=== PATIENT | female | born 1935 | race Caucasian/White ===

== ENCOUNTER 2017-06-02 15:40 | Inpatient (IN) | payer MEDICARE, OTHER ==
[2017-06-02] VITALS (8 sets, daily range): BP systolic 103–169; BP diastolic 46–91
[~2017-06-02] VITALS: Ht 165.1 cm; Wt 90.7 kg
[2017-06-02] MEDS ORDERED: SODIUM CHLORIDE FLUSH 10ML SYR IVF ONE ×2 (16:00→16:30)
[2017-06-02 16:38] LABS: BASOPHILS # (AUTO) 0.04 x10^3/uL (0-0.1); BASOPHILS % (AUTO) 0 % (0-1); EOSINOPHILS # (AUTO) 0.32 x10^3/uL (0-0.4); EOSINOPHILS % (AUTO) 3 % (1-7); LYMPHOCYTES % (AUTO) 26 % (22-44); MD NO; MEAN CORPUSCULAR HEMOGLOBIN 29.3 pg (27.0-34.8); MEAN CORPUSCULAR VOLUME 88.8 fL (80-100); MEAN PLATELET VOLUME 10.8 fL (7.4-10.4); MONOCYTES # (AUTO) 0.61 x10^3/uL (0.2-0.8); MONOCYTES % (AUTO) 6 % (2-9); NEUTROPHILS # (AUTO) 7.17 x10^3/uL (1.8-6.8); NEUTROPHILS % (AUTO) 65 % (42-75); PLATELET COUNT 196 x10^3/uL (130-400); RED BLOOD COUNT 4.77 x10^6/uL (3.82-5.3); RED CELL DISTRIBUTION WIDTH 14.5 % (9.6-15.2)
[2017-06-02] MEDS ORDERED: FURO40TA6 PO (16:44)
[2017-06-02] MEDS ORDERED: POTA10TA PO (16:44)
[2017-06-02] MEDS ORDERED: WARF2TAB7 PO (16:44)
[2017-06-02] MEDS ORDERED: GLIP5TAB10 PO (16:44)
[2017-06-02] MEDS ORDERED: CHOL100011 PO (16:44)
[2017-06-02] MEDS ORDERED: ASPI-496 PO (16:44)
[2017-06-02] MEDS ORDERED: LEVO25TA4 PO (16:44)
[2017-06-02 16:47] LABS: FIO2 90 %
[2017-06-02] MEDS ORDERED: CEFTRIAXONE PMX 1GM/50ML 50 ML ONE (16:47)
[2017-06-02 16:48] LABS: ALANINE AMINOTRANSFERASE 45 U/L (12-78); ALBUMIN 3.7 g/dL (3.4-5.0); ANION GAP 4 mmol/L (5-15); CALCIUM 8.4 mg/dL (8.5-10.1); CHLORIDE 109 mmol/L (98-107); CREATININE 1.13 mg/dL (0.55-1.02)
[2017-06-02 16:53] LABS: ALKALINE PHOSPHATASE 71 U/L (45-117); BILIRUBIN,TOTAL 1.1 mg/dL (0.2-1.0); TOTAL PROTEIN 7.4 g/dL (6.4-8.2); TROPONIN I < 0.015 ng/mL (0.000-0.045)
[2017-06-02 16:58] LABS: INTERNATIONAL NORMALIZED RATIO 3.89 (0.93-1.1); PROTHROMBIN TIME 39.4 Seconds (9.6-11.5)
[2017-06-02] MEDS ORDERED: VANCOMYCIN 1,400 MG in SODIUM CHLORIDE 0.9% 250 ML IV ONE (17:00)
[2017-06-02] MEDS ORDERED: CEFTRIAXONE PMX 1GM/50ML 50 ML IVPB ONE (17:00)
[2017-06-02] MEDS ORDERED: VANCOMYCIN PER PHARMACY MC ONE (17:00)
[2017-06-02] MEDS ORDERED: POLYETHYLENE GLYCOL 17 GM PACKET PO PRN (19:00)
[2017-06-02] MEDS ORDERED: BISACODYL 10 MG SUPP PR PRN (19:00)
[2017-06-02] MEDS ORDERED: PROPOFOL 100 ML IV PRN (19:30)
[2017-06-02] MEDS ORDERED: VECURONIUM 10 MG IVPush ONE (19:30)
[2017-06-02] MEDS ORDERED: ETOMIDATE 20 MG/10 ML IVPush ONE (19:30)
[2017-06-02] MEDS ORDERED: PROPOFOL 10 MG/ML, 100ML IV ONE (20:00)
[2017-06-02] MEDS ORDERED: VECURONIUM 10 MG ONE (20:00)
[2017-06-02] MEDS ORDERED: ETOMIDATE 20 MG/10 ML ONE (20:00)
[2017-06-02] MEDS ORDERED: LIDOCAINE-MPF 1%, 2ML ENDO PRN (20:30)
[2017-06-02] MEDS ORDERED: LABETALOL 5MG/ML, 20ML IVPush PRN (20:30)
[2017-06-02] MEDS ORDERED: PHARMACY MAY ADJ FOR RENAL FX MC SCH (20:30)
[2017-06-02] MEDS ORDERED: LACTULOSE 20 GM/30 ML UDC NG PRN (20:30)
[2017-06-02] MEDS: PANTOPRAZOLE 40 MG IV IVPush SCH (21:48)
[2017-06-02] MEDS: AZITHROMYCIN 500 MG in SODIUM CHLORIDE 0.9% 250 ML IV SCH (21:48)
[2017-06-02] MEDS: PROPOFOL 100 ML IV PRN (23:25)
[2017-06-03 00:40] VITALS: BP 145/72
[2017-06-03 02:24] LABS: BASOPHILS # (AUTO) 0.04 x10^3/uL (0-0.1); BASOPHILS % (AUTO) 0 % (0-1); EOSINOPHILS # (AUTO) 0.05 x10^3/uL (0-0.4); EOSINOPHILS % (AUTO) 0 % (1-7); LYMPHOCYTES # (AUTO) 1.48 x10^3/uL (1-3.4); LYMPHOCYTES % (AUTO) 12 % (22-44); MD NO; MEAN CORPUSCULAR HEMOGLOBIN 29.4 pg (27.0-34.8); MEAN CORPUSCULAR HGB CONC 33.2 g/dL (32.4-35.8); MEAN CORPUSCULAR VOLUME 88.4 fL (80-100); MONOCYTES # (AUTO) 0.72 x10^3/uL (0.2-0.8); MONOCYTES % (AUTO) 6 % (2-9); NEUTROPHILS # (AUTO) 9.68 x10^3/uL (1.8-6.8); NEUTROPHILS % (AUTO) 81 % (42-75); PLATELET COUNT 138 x10^3/uL (130-400); RED BLOOD COUNT 3.58 x10^6/uL (3.82-5.3); RED CELL DISTRIBUTION WIDTH 14.6 % (9.6-15.2)
[2017-06-03 02:33] LABS: INTERNATIONAL NORMALIZED RATIO 1.82 (0.93-1.1); PROTHROMBIN TIME 18.7 Seconds (9.6-11.5)
[2017-06-03 02:36] LABS: ALANINE AMINOTRANSFERASE 35 U/L (12-78); ALBUMIN 3.3 g/dL (3.4-5.0); ANION GAP 6 mmol/L (5-15); CALCIUM 8.1 mg/dL (8.5-10.1); CHLORIDE 112 mmol/L (98-107); CREATININE 0.83 mg/dL (0.55-1.02)
[2017-06-03 02:47] LABS: ALKALINE PHOSPHATASE 59 U/L (45-117); TOTAL PROTEIN 6.6 g/dL (6.4-8.2)
[2017-06-03] MEDS: PROPOFOL 100 ML IV PRN (04:27)
[2017-06-03] MEDS: PANTOPRAZOLE 40 MG IV IVPush SCH ×2 (07:52→20:11)
[2017-06-03] MEDS: CEFTRIAXONE PMX 2GM/50ML 50 ML IV SCH (15:36)
[2017-06-03] MEDS: AZITHROMYCIN 500 MG in SODIUM CHLORIDE 0.9% 250 ML IV SCH (20:11)
[2017-06-04 04:30] LABS: BASOPHILS # (AUTO) 0.03 x10^3/uL (0-0.1); BASOPHILS % (AUTO) 0 % (0-1); EOSINOPHILS # (AUTO) 0.17 x10^3/uL (0-0.4); EOSINOPHILS % (AUTO) 2 % (1-7); INTERNATIONAL NORMALIZED RATIO 1.9 (0.93-1.1); LYMPHOCYTES % (AUTO) 14 % (22-44); MD NO; MEAN CORPUSCULAR HEMOGLOBIN 29.7 pg (27.0-34.8); MEAN CORPUSCULAR HGB CONC 33.5 g/dL (32.4-35.8); MEAN CORPUSCULAR VOLUME 88.5 fL (80-100); MEAN PLATELET VOLUME 10.8 fL (7.4-10.4); MONOCYTES # (AUTO) 0.42 x10^3/uL (0.2-0.8); MONOCYTES % (AUTO) 5 % (2-9); NEUTROPHILS % (AUTO) 79 % (42-75); PLATELET COUNT 124 x10^3/uL (130-400); PROTHROMBIN TIME 19.5 Seconds (9.6-11.5); RED BLOOD COUNT 3.25 x10^6/uL (3.82-5.3); RED CELL DISTRIBUTION WIDTH 14.8 % (9.6-15.2)
[2017-06-04 04:32] LABS: ANION GAP 4 mmol/L (5-15); CALCIUM 8.1 mg/dL (8.5-10.1); CHLORIDE 114 mmol/L (98-107)
[2017-06-04 04:36] LABS: ALANINE AMINOTRANSFERASE 25 U/L (12-78); ALKALINE PHOSPHATASE 48 U/L (45-117); BILIRUBIN,TOTAL 2.2 mg/dL (0.2-1.0); CREATININE 0.84 mg/dL (0.55-1.02); TOTAL PROTEIN 6.2 g/dL (6.4-8.2)
[2017-06-04] MEDS: PANTOPRAZOLE 40 MG IV IVPush SCH ×2 (07:57→19:52)
[2017-06-04] MEDS ORDERED: MIDAZOLAM 1 MG/ML, 5ML ONE (14:00)
[2017-06-04] MEDS ORDERED: VECURONIUM 10 MG ONE (14:00)
[2017-06-04] MEDS ORDERED: PROPOFOL 10 MG/ML, 100ML IV ONE (14:00)
[2017-06-04] MEDS ORDERED: PROPOFOL 10 MG/ML, 20ML ONE (14:00)
[2017-06-04] MEDS: CEFTRIAXONE PMX 2GM/50ML 50 ML IV SCH (16:29)
[2017-06-04] MEDS: AZITHROMYCIN 500 MG in SODIUM CHLORIDE 0.9% 250 ML IV SCH (19:52)
[2017-06-05 04:51] LABS: INTERNATIONAL NORMALIZED RATIO 1.78 (0.93-1.1); PROTHROMBIN TIME 18.3 Seconds (9.6-11.5)
[2017-06-05 05:06] LABS: BASOPHILS # (AUTO) 0.04 x10^3/uL (0-0.1); BASOPHILS % (AUTO) 0 % (0-1); EOSINOPHILS % (AUTO) 1 % (1-7); LYMPHOCYTES # (AUTO) 1.32 x10^3/uL (1-3.4); LYMPHOCYTES % (AUTO) 13 % (22-44); MD NO; MEAN CORPUSCULAR HEMOGLOBIN 30.7 pg (27.0-34.8); MEAN CORPUSCULAR HGB CONC 34.3 g/dL (32.4-35.8); MEAN CORPUSCULAR VOLUME 89.6 fL (80-100); MEAN PLATELET VOLUME 11.1 fL (7.4-10.4); MONOCYTES # (AUTO) 0.55 x10^3/uL (0.2-0.8); MONOCYTES % (AUTO) 6 % (2-9); NEUTROPHILS # (AUTO) 8.12 x10^3/uL (1.8-6.8); NEUTROPHILS % (AUTO) 80 % (42-75); PLATELET COUNT 107 x10^3/uL (130-400); RED BLOOD COUNT 3.29 x10^6/uL (3.82-5.3); RED CELL DISTRIBUTION WIDTH 15.1 % (9.6-15.2)
[2017-06-05] MEDS: ACETYLCYSTEINE 10%,30ML NPPB SCH ×4 (07:00→20:00)
[2017-06-05 07:03] LABS: ANION GAP 8 mmol/L (5-15); CALCIUM 8.4 mg/dL (8.5-10.1); CHLORIDE 114 mmol/L (98-107); CREATININE 0.78 mg/dL (0.55-1.02)
[2017-06-05] MEDS: PANTOPRAZOLE 40 MG IV IVPush SCH (08:14)
[2017-06-05] MEDS ORDERED: CEFTRIAXONE 2,000 MG in DEXTROSE 5% 50 ML IV SCH (10:00)
[2017-06-05] MEDS ORDERED: ALBUTEROL SULFATE 2.5 MG/3 ML ONE (10:27)
[2017-06-05] MEDS: ALBUTEROL SULFATE 2.5 MG/3 ML NPPB SCH ×3 (11:10→23:00)
[2017-06-05] MEDS: CEFTRIAXONE 2,000 MG in DEXTROSE 5% 50 ML IV SCH (11:30)
[2017-06-05] MEDS: AZITHROMYCIN 500 MG in SODIUM CHLORIDE 0.9% 250 ML IV SCH (20:38)
[2017-06-06 04:49] LABS: BASOPHILS # (AUTO) 0.06 x10^3/uL (0-0.1); BASOPHILS % (AUTO) 1 % (0-1); EOSINOPHILS # (AUTO) 0.08 x10^3/uL (0-0.4); EOSINOPHILS % (AUTO) 1 % (1-7); LYMPHOCYTES # (AUTO) 1.88 x10^3/uL (1-3.4); LYMPHOCYTES % (AUTO) 16 % (22-44); MD NO; MEAN CORPUSCULAR HEMOGLOBIN 30.2 pg (27.0-34.8); MEAN CORPUSCULAR HGB CONC 33.7 g/dL (32.4-35.8); MEAN CORPUSCULAR VOLUME 89.5 fL (80-100); MEAN PLATELET VOLUME 10.8 fL (7.4-10.4); MONOCYTES # (AUTO) 0.69 x10^3/uL (0.2-0.8); MONOCYTES % (AUTO) 6 % (2-9); NEUTROPHILS # (AUTO) 9.23 x10^3/uL (1.8-6.8); NEUTROPHILS % (AUTO) 77 % (42-75); PLATELET COUNT 141 x10^3/uL (130-400); RED BLOOD COUNT 3.31 x10^6/uL (3.82-5.3); RED CELL DISTRIBUTION WIDTH 15.1 % (9.6-15.2)
[2017-06-06] MEDS: ALBUTEROL SULFATE 2.5 MG/3 ML NPPB SCH ×5 (07:10→23:29)
[2017-06-06] MEDS: ACETYLCYSTEINE 10%,30ML NPPB SCH ×3 (07:10→14:19)
[2017-06-06] MEDS ORDERED: FUROSEMIDE 20 MG/2 ML IV ONE (08:00)
[2017-06-06] MEDS ORDERED: LIDOCAINE-MPF 1%, 2ML ONE (08:54)
[2017-06-06] MEDS ORDERED: HEPARIN 5,000 UNITS/ML, 1ML IV PRN (09:00)
[2017-06-06] MEDS: CEFTRIAXONE 2,000 MG in DEXTROSE 5% 50 ML IV SCH (09:56)
[2017-06-06] MEDS ORDERED: HEPARIN 5,000 UNITS/ML, 1ML IV ONE (10:30)
[2017-06-06] MEDS ORDERED: HEPARIN 25,000 UNITS/500ML PMX 500 ML IV PRN (10:30)
[2017-06-06] MEDS: GUAIFENESIN ER 600 MG TABLET PO SCH ×2 (11:13→20:48)
[2017-06-06 13:20] LABS: RAPID INFLUENZA A Negative (Negative); RAPID INFLUENZA B Negative (Negative)
[2017-06-06] MEDS ORDERED: AMIODARONE 150 MG in DEXTROSE 5% 100 ML IV ONE (17:30)
[2017-06-06] MEDS ORDERED: AMIODARONE 900 MG in DEXTROSE 5% 482 ML IV PRN (17:30)
[2017-06-06] MEDS ORDERED: FILTER 0.22 MICRON IV PRN (17:30)
[2017-06-06] MEDS: AMIODARONE 450 MG in DEXTROSE 5% 241 ML IV PRN (17:40)
[2017-06-06] MEDS: ACETAMINOPHEN 650 MG/20.3 ML UDC PO PRN (20:57)
[2017-06-06] MEDS ORDERED: PROPOFOL 100 ML IV PRN (21:00)
[2017-06-06] MEDS: METRONIDAZOLE PMX 500MG/100ML 100 ML IV SCH (21:47)
[2017-06-06] MEDS: PROPOFOL 100 ML IV PRN (22:08)
[2017-06-07] MEDS: ALBUTEROL SULFATE 2.5 MG/3 ML NPPB SCH ×6 (03:03→22:34)
[2017-06-07 04:23] LABS: BASOPHILS # (AUTO) 0.03 x10^3/uL (0-0.1); BASOPHILS % (AUTO) 0 % (0-1); EOSINOPHILS % (AUTO) 1 % (1-7); LYMPHOCYTES # (AUTO) 1.29 x10^3/uL (1-3.4); LYMPHOCYTES % (AUTO) 10 % (22-44); MD NO; MEAN CORPUSCULAR HEMOGLOBIN 30.6 pg (27.0-34.8); MEAN CORPUSCULAR HGB CONC 34.2 g/dL (32.4-35.8); MEAN CORPUSCULAR VOLUME 89.7 fL (80-100); MEAN PLATELET VOLUME 10.8 fL (7.4-10.4); MONOCYTES # (AUTO) 0.66 x10^3/uL (0.2-0.8); MONOCYTES % (AUTO) 5 % (2-9); NEUTROPHILS # (AUTO) 10.29 x10^3/uL (1.8-6.8); NEUTROPHILS % (AUTO) 83 % (42-75); PLATELET COUNT 144 x10^3/uL (130-400); RED BLOOD COUNT 3.25 x10^6/uL (3.82-5.3); RED CELL DISTRIBUTION WIDTH 15.1 % (9.6-15.2)
[2017-06-07 04:35] LABS: ANION GAP 8 mmol/L (5-15); CHLORIDE 105 mmol/L (98-107)
[2017-06-07 04:36] LABS: CREATININE 0.75 mg/dL (0.55-1.02)
[2017-06-07] MEDS: ACETAMINOPHEN 650 MG/20.3 ML UDC PO PRN ×2 (05:12→18:10)
[2017-06-07] MEDS: METRONIDAZOLE PMX 500MG/100ML 100 ML IV SCH ×3 (05:12→21:49)
[2017-06-07] MEDS: PROPOFOL 100 ML IV PRN (05:12)
[2017-06-07] MEDS: AMIODARONE 450 MG in DEXTROSE 5% 241 ML IV PRN (05:50)
[2017-06-07] MEDS: GUAIFENESIN ER 600 MG TABLET PO SCH ×2 (09:00→21:00)
[2017-06-07] MEDS: POTASSIUM CHLORIDE 20 MEQ PACKET PO SCH ×2 (09:45→21:50)
[2017-06-07] MEDS: FAMOTIDINE 20 MG/2 ML IVPush SCH ×2 (09:45→21:50)
[2017-06-07] MEDS: CHOLESTYRAMINE LIGHT 4GM PACKET PO SCH ×2 (09:45→21:50)
[2017-06-07] MEDS: CEFTRIAXONE 2,000 MG in DEXTROSE 5% 50 ML IV SCH (09:46)
[2017-06-07] MEDS ORDERED: METOPROLOL 1 MG/ML, 5ML IVPush ONE (19:00)
[2017-06-07] MEDS ORDERED: AMIODARONE 150 MG in DEXTROSE 5% 100 ML IV ONE (19:00)
[2017-06-07 20:09] LABS: TROPONIN I < 0.015 ng/mL (0.000-0.045)
[2017-06-08] MEDS: ACETAMINOPHEN 650 MG/20.3 ML UDC PO PRN ×6 (01:13→22:57)
[2017-06-08] MEDS: ALBUTEROL SULFATE 2.5 MG/3 ML NPPB SCH ×6 (02:55→23:00)
[2017-06-08] MEDS: METRONIDAZOLE PMX 500MG/100ML 100 ML IV SCH ×3 (04:49→20:36)
[2017-06-08 05:01] LABS: MEAN CORPUSCULAR HEMOGLOBIN 30.1 pg (27.0-34.8); MEAN CORPUSCULAR HGB CONC 33.6 g/dL (32.4-35.8); MEAN CORPUSCULAR VOLUME 89.7 fL (80-100); MEAN PLATELET VOLUME 10.9 fL (7.4-10.4); PLATELET COUNT 159 x10^3/uL (130-400); RED BLOOD COUNT 3.21 x10^6/uL (3.82-5.3); RED CELL DISTRIBUTION WIDTH 15.3 % (9.6-15.2)
[2017-06-08 05:04] LABS: ANION GAP 7 mmol/L (5-15); CALCIUM 8.3 mg/dL (8.5-10.1); CHLORIDE 107 mmol/L (98-107)
[2017-06-08 05:06] LABS: CREATININE 0.89 mg/dL (0.55-1.02)
[2017-06-08 05:55] LABS: BASOPHILS % (AUTO) 0 % (0-1); EOSINOPHILS # (AUTO) 0.09 x10^3/uL (0-0.4); EOSINOPHILS % (AUTO) 1 % (1-7); LYMPHOCYTES # (AUTO) 0.67 x10^3/uL (1-3.4); LYMPHOCYTES % (AUTO) 7 % (22-44); MD SCAN; MONOCYTES # (AUTO) 0.07 x10^3/uL (0.2-0.8); MONOCYTES % (AUTO) 1 % (2-9); NEUTROPHILS # (AUTO) 8.59 x10^3/uL (1.8-6.8); NEUTROPHILS % (AUTO) 91 % (42-75)
[2017-06-08] MEDS: AMIODARONE 450 MG in DEXTROSE 5% 241 ML IV PRN (05:56)
[2017-06-08] MEDS: GUAIFENESIN ER 600 MG TABLET PO SCH (08:15)
[2017-06-08] MEDS: FAMOTIDINE 20 MG/2 ML IVPush SCH ×2 (08:15→20:35)
[2017-06-08] MEDS: CHOLESTYRAMINE LIGHT 4GM PACKET PO SCH ×2 (08:15→20:36)
[2017-06-08] MEDS: CEFTRIAXONE 2,000 MG in DEXTROSE 5% 50 ML IV SCH (10:23)
[2017-06-08] MEDS ORDERED: IBUPROFEN 600 MG TABLET PO PRN (23:30)
[2017-06-09] MEDS: AMIODARONE 450 MG in DEXTROSE 5% 241 ML IV PRN (02:23)
[2017-06-09] MEDS: ALBUTEROL SULFATE 2.5 MG/3 ML NPPB SCH ×6 (02:54→23:21)
[2017-06-09 04:45] LABS: ANION GAP 4 mmol/L (5-15); CALCIUM 7.8 mg/dL (8.5-10.1); CHLORIDE 107 mmol/L (98-107)
[2017-06-09 04:47] LABS: CREATININE 0.85 mg/dL (0.55-1.02); TRIGLYCERIDES 57 mg/dL (50-200)
[2017-06-09 05:04] LABS: BASOPHILS # (AUTO) 0.02 x10^3/uL (0-0.1); BASOPHILS % (AUTO) 0 % (0-1); EOSINOPHILS % (AUTO) 1 % (1-7); LYMPHOCYTES # (AUTO) 0.73 x10^3/uL (1-3.4); LYMPHOCYTES % (AUTO) 10 % (22-44); MD SCAN; MEAN CORPUSCULAR HEMOGLOBIN 30.1 pg (27.0-34.8); MEAN CORPUSCULAR HGB CONC 33.6 g/dL (32.4-35.8); MEAN CORPUSCULAR VOLUME 89.5 fL (80-100); MEAN PLATELET VOLUME 10.8 fL (7.4-10.4); MONOCYTES # (AUTO) 0.22 x10^3/uL (0.2-0.8); MONOCYTES % (AUTO) 3 % (2-9); NEUTROPHILS % (AUTO) 85 % (42-75); PLATELET COUNT 137 x10^3/uL (130-400); RED BLOOD COUNT 3.03 x10^6/uL (3.82-5.3); RED CELL DISTRIBUTION WIDTH 15.6 % (9.6-15.2)
[2017-06-09] MEDS: METRONIDAZOLE PMX 500MG/100ML 100 ML IV SCH (05:44)
[2017-06-09] MEDS: FAMOTIDINE 20 MG/2 ML IVPush SCH ×2 (08:42→21:01)
[2017-06-09] MEDS: LACTOBACILLUS CHEW TABLET NG SCH ×3 (08:42→21:01)
[2017-06-09] MEDS ORDERED: DIGOXIN 0.25 MG/ML, 2ML IVPush ONE (09:00)
[2017-06-09] MEDS: CLINDAMYCIN PMX 600MG/50ML 50 ML IV SCH ×2 (09:26→17:15)
[2017-06-09 10:36] LABS: MICROSCOPIC INDICATED
[2017-06-09] MEDS ORDERED: LIDOCAINE-MPF 1%, 2ML ONE (11:33)
[2017-06-09] MEDS ORDERED: HEPARIN wt. based STROKE protocol MC PRN (13:30)
[2017-06-09] MEDS ORDERED: DO NOT GIVE XX PRN (13:30)
[2017-06-09] MEDS: HEPARIN 25,000 UNITS/500ML PMX 500 ML IV PRN (13:52)
[2017-06-09] MEDS: ACETAMINOPHEN 650 MG/20.3 ML UDC PO PRN ×2 (15:43→22:19)
[2017-06-09] MEDS: INSULIN LISPRO 100 UNITS/ML, PEN SQ-INSULIN SCH ×2 (15:43→21:04)
[2017-06-09] MEDS ORDERED: RACEPINEPHRINE INH 2.25%, 0.5ML ONE (21:44)
[2017-06-10] MEDS: CLINDAMYCIN PMX 600MG/50ML 50 ML IV SCH ×3 (00:20→18:23)
[2017-06-10] MEDS: ALBUTEROL SULFATE 2.5 MG/3 ML NPPB SCH ×6 (03:00→23:18)
[2017-06-10 04:39] LABS: ANION GAP 8 mmol/L (5-15); CHLORIDE 105 mmol/L (98-107)
[2017-06-10 04:40] LABS: CREATININE 0.74 mg/dL (0.55-1.02)
[2017-06-10 05:15] LABS: BASOPHILS # (AUTO) 0.01 x10^3/uL (0-0.1); BASOPHILS % (AUTO) 0 % (0-1); EOSINOPHILS # (AUTO) 0.37 x10^3/uL (0-0.4); EOSINOPHILS % (AUTO) 4 % (1-7); LYMPHOCYTES # (AUTO) 1.06 x10^3/uL (1-3.4); LYMPHOCYTES % (AUTO) 11 % (22-44); MD SCAN; MEAN CORPUSCULAR HEMOGLOBIN 29.2 pg (27.0-34.8); MEAN CORPUSCULAR HGB CONC 33.2 g/dL (32.4-35.8); MEAN CORPUSCULAR VOLUME 87.9 fL (80-100); MONOCYTES # (AUTO) 0.04 x10^3/uL (0.2-0.8); MONOCYTES % (AUTO) 1 % (2-9); NEUTROPHILS % (AUTO) 84 % (42-75); PLATELET COUNT 175 x10^3/uL (130-400); RED BLOOD COUNT 3.01 x10^6/uL (3.82-5.3); RED CELL DISTRIBUTION WIDTH 15.1 % (9.6-15.2)
[2017-06-10] MEDS: ACETAMINOPHEN 650 MG/20.3 ML UDC PO PRN ×3 (05:19→20:42)
[2017-06-10] MEDS: INSULIN LISPRO 100 UNITS/ML, PEN SQ-INSULIN SCH ×4 (08:05→20:43)
[2017-06-10] MEDS: FAMOTIDINE 20 MG/2 ML IVPush SCH ×2 (10:29→20:42)
[2017-06-10] MEDS: AMIODARONE 200 MG TABLET PO SCH ×2 (10:30→22:37)
[2017-06-10] MEDS: LACTOBACILLUS CHEW TABLET NG SCH ×3 (10:30→20:42)
[2017-06-10] MEDS: HEPARIN 25,000 UNITS/500ML PMX 500 ML IV PRN (14:03)
[2017-06-10] MEDS ORDERED: OMNIPAQUE 350 MG/ML, 100ML BOTTLE ONE (15:27)
[2017-06-11] MEDS: CLINDAMYCIN PMX 600MG/50ML 50 ML IV SCH ×3 (00:47→17:32)
[2017-06-11] MEDS: ALBUTEROL SULFATE 2.5 MG/3 ML NPPB SCH ×6 (03:09→22:51)
[2017-06-11 03:23] LABS: ANION GAP 7 mmol/L (5-15); CALCIUM 7.7 mg/dL (8.5-10.1); CHLORIDE 103 mmol/L (98-107)
[2017-06-11 03:24] LABS: CREATININE 0.76 mg/dL (0.55-1.02)
[2017-06-11 03:28] LABS: MD YES; MEAN CORPUSCULAR HEMOGLOBIN 29.6 pg (27.0-34.8); MEAN CORPUSCULAR HGB CONC 33.4 g/dL (32.4-35.8); MEAN CORPUSCULAR VOLUME 88.5 fL (80-100); MEAN PLATELET VOLUME 10.9 fL (7.4-10.4); PLATELET COUNT 175 x10^3/uL (130-400); RED BLOOD COUNT 3.02 x10^6/uL (3.82-5.3); RED CELL DISTRIBUTION WIDTH 15.9 % (9.6-15.2)
[2017-06-11 03:32] LABS: ANISOCYTOSIS 1+; BAND#(MANUAL) 0.28 x10^3/uL; BANDS%(MANUAL) 3 % (0-7); EOS#(MANUAL) 0.28 x10^3/uL (0.0-0.4); EOS% (MANUAL) 3 % (1-7); LYMPH#(MANUAL) 2.21 x10^3/uL (1-3.4); LYMPHS% (MANUAL) 24 % (22-44); METAMYELOCYTES# (MANUAL) 0.09 x10^3/uL (0-0); METAMYELOCYTES% (MANUAL) 1 % (0-1); MONOS#(MANUAL) 0.09 x10^3/uL (0.3-2.7); MONOS% (MANUAL) 1 % (2-9); MYELOCYTES# (MANUAL) 0.09 x10^3/uL (0-0); MYELOCYTES% (MANUAL) 1 % (0-0); NRBC % (MANUAL) 2 % (0-1); OVALOCYTES 1+; POLYCHROMASIA 1+; SEG#(MANUAL) 6.16 x10^3/uL (1.8-6.8); SEGS% (MANUAL) 67 % (42-75)
[2017-06-11 03:33] LABS: <PLATELET ESTIMATE> ADEQUATE; LARGE PLATELETS 1+
[2017-06-11 03:34] LABS: TOXIC GRAN 1+
[2017-06-11 03:40] LABS: SCHISTOCYTES 1+
[2017-06-11] MEDS: ACETAMINOPHEN 650 MG/20.3 ML UDC PO PRN ×3 (03:54→20:41)
[2017-06-11] MEDS: INSULIN LISPRO 100 UNITS/ML, PEN SQ-INSULIN SCH ×4 (08:22→21:00)
[2017-06-11] MEDS: AMIODARONE 200 MG TABLET PO SCH (08:49)
[2017-06-11] MEDS: LACTOBACILLUS CHEW TABLET NG SCH ×3 (08:49→21:16)
[2017-06-11] MEDS: FAMOTIDINE 20 MG/2 ML IVPush SCH ×2 (08:49→21:16)
[2017-06-11] MEDS ORDERED: FENTANYL PF 100 MCG/2ML ONE (12:28)
[2017-06-11] MEDS: PROPOFOL 100 ML IV PRN (13:49)
[2017-06-11] MEDS ORDERED: MIDAZOLAM 1 MG/ML, 2ML ONE (13:54)
[2017-06-11] MEDS ORDERED: GOLYTELY 4,000ML ORAL.SOL NG ONE (18:00)
[2017-06-11] MEDS ORDERED: FENTANYL PF 100 MCG/2ML IVPush ONE (19:00)
[2017-06-11] MEDS: HEPARIN 25,000 UNITS/500ML PMX 500 ML IV PRN (20:09)
[2017-06-12] MEDS: AMIODARONE 200 MG TABLET PO SCH ×3 (00:09→22:38)
[2017-06-12] MEDS: CLINDAMYCIN PMX 600MG/50ML 50 ML IV SCH ×3 (01:06→16:58)
[2017-06-12] MEDS: INSULIN LISPRO 100 UNITS/ML, PEN SQ-INSULIN SCH ×4 (03:00→21:00)
[2017-06-12] MEDS: ALBUTEROL SULFATE 2.5 MG/3 ML NPPB SCH ×6 (03:00→22:40)
[2017-06-12 04:39] LABS: ANION GAP 8 mmol/L (5-15); CALCIUM 7.6 mg/dL (8.5-10.1); CHLORIDE 101 mmol/L (98-107)
[2017-06-12 04:42] LABS: CREATININE 0.79 mg/dL (0.55-1.02); TRIGLYCERIDES 103 mg/dL (50-200)
[2017-06-12] MEDS ORDERED: ACETAMINOPHEN 325 MG TABLET ONE (04:43)
[2017-06-12 05:39] LABS: MEAN CORPUSCULAR HEMOGLOBIN 28.9 pg (27.0-34.8); MEAN CORPUSCULAR VOLUME 87.4 fL (80-100); MEAN PLATELET VOLUME 10.4 fL (7.4-10.4); PLATELET COUNT 200 x10^3/uL (130-400); RED BLOOD COUNT 2.97 x10^6/uL (3.82-5.3); RED CELL DISTRIBUTION WIDTH 15.8 % (9.6-15.2)
[2017-06-12 05:43] LABS: MD YES
[2017-06-12 05:44] LABS: BAND#(MANUAL) 0.28 x10^3/uL; BANDS%(MANUAL) 3 % (0-7); EOS#(MANUAL) 0.09 x10^3/uL (0.0-0.4); EOS% (MANUAL) 1 % (1-7); LYMPH#(MANUAL) 1.22 x10^3/uL (1-3.4); LYMPHS% (MANUAL) 13 % (22-44); MONOS#(MANUAL) 0.38 x10^3/uL (0.3-2.7); MONOS% (MANUAL) 4 % (2-9); NRBC % (MANUAL) 1 % (0-1); SEG#(MANUAL) 7.43 x10^3/uL (1.8-6.8); SEGS% (MANUAL) 79 % (42-75)
[2017-06-12 05:45] LABS: ANISOCYTOSIS 1+; OVALOCYTES 1+; POLYCHROMASIA 1+
[2017-06-12 05:46] LABS: TOXIC GRAN 1+
[2017-06-12 05:47] LABS: <PLATELET ESTIMATE> ADEQUATE; LARGE PLATELETS 1+
[2017-06-12] MEDS ORDERED: FENTANYL PF 100 MCG/2ML ONE (07:41)
[2017-06-12] MEDS ORDERED: MIDAZOLAM 1 MG/ML, 5ML ONE (07:41)
[2017-06-12] MEDS: FAMOTIDINE 20 MG/2 ML IVPush SCH ×2 (09:03→21:00)
[2017-06-12] MEDS: LACTOBACILLUS CHEW TABLET NG SCH ×3 (09:04→21:20)
[2017-06-12] MEDS ORDERED: FUROSEMIDE 20 MG/2 ML IV ONE (10:00)
[2017-06-12] MEDS: ACETAMINOPHEN 650 MG/20.3 ML UDC PO PRN ×2 (14:43→21:20)
[2017-06-12] MEDS: RANITIDINE 25 MG/ML, 2ML IVPush SCH (21:45)
[2017-06-12] MEDS: HEPARIN 25,000 UNITS/500ML PMX 500 ML IV PRN (23:26)
[2017-06-13] MEDS: CLINDAMYCIN PMX 600MG/50ML 50 ML IV SCH ×3 (01:23→16:47)
[2017-06-13 02:35] LABS: ANION GAP 8 mmol/L (5-15); CALCIUM 7.4 mg/dL (8.5-10.1); CHLORIDE 100 mmol/L (98-107); CREATININE 0.83 mg/dL (0.55-1.02)
[2017-06-13] MEDS: ALBUTEROL SULFATE 2.5 MG/3 ML NPPB SCH ×6 (02:39→22:27)
[2017-06-13] MEDS: RANITIDINE 25 MG/ML, 2ML IVPush SCH (03:30)
[2017-06-13] MEDS: INSULIN LISPRO 100 UNITS/ML, PEN SQ-INSULIN SCH ×4 (03:35→21:12)
[2017-06-13] MEDS: ACETAMINOPHEN 650 MG/20.3 ML UDC PO PRN ×3 (04:14→19:40)
[2017-06-13 04:45] LABS: BASOPHILS # (AUTO) 0.04 x10^3/uL (0-0.1); BASOPHILS % (AUTO) 1 % (0-1); EOSINOPHILS # (AUTO) 0.19 x10^3/uL (0-0.4); EOSINOPHILS % (AUTO) 2 % (1-7); LYMPHOCYTES # (AUTO) 1.26 x10^3/uL (1-3.4); LYMPHOCYTES % (AUTO) 15 % (22-44); MD SCAN; MEAN CORPUSCULAR HEMOGLOBIN 28.5 pg (27.0-34.8); MEAN CORPUSCULAR HGB CONC 32.4 g/dL (32.4-35.8); MEAN CORPUSCULAR VOLUME 87.8 fL (80-100); MEAN PLATELET VOLUME 10.4 fL (7.4-10.4); MONOCYTES # (AUTO) 0.24 x10^3/uL (0.2-0.8); MONOCYTES % (AUTO) 3 % (2-9); NEUTROPHILS # (AUTO) 6.83 x10^3/uL (1.8-6.8); NEUTROPHILS % (AUTO) 80 % (42-75); PLATELET COUNT 169 x10^3/uL (130-400); RED CELL DISTRIBUTION WIDTH 15.9 % (9.6-15.2)
[2017-06-13] MEDS: AMIODARONE 200 MG TABLET PO SCH ×2 (09:15→21:12)
[2017-06-13] MEDS: RANITIDINE 50 MG in SODIUM CHLORIDE 0.9% 100 ML IV SCH ×3 (09:16→21:11)
[2017-06-13] MEDS: LACTOBACILLUS CHEW TABLET NG SCH ×3 (09:16→21:11)
[2017-06-13] MEDS: FUROSEMIDE 20 MG/2 ML IV SCH (09:16)
[2017-06-13] MEDS ORDERED: LIDOCAINE-MPF 1%, 2ML ONE (11:53)
[2017-06-13] MEDS ORDERED: LIDOCAINE 1%, 2ML INFIL ONE (12:30)
[2017-06-13] MEDS: HEPARIN 25,000 UNITS/500ML PMX 500 ML IV PRN (15:25)
[2017-06-14] MEDS: CLINDAMYCIN PMX 600MG/50ML 50 ML IV SCH ×3 (00:42→16:43)
[2017-06-14] MEDS: LIDOCAINE 1%, 2ML ENDO PRN ×2 (02:18)
[2017-06-14] MEDS: ALBUTEROL SULFATE 2.5 MG/3 ML NPPB SCH ×6 (02:18→22:50)
[2017-06-14] MEDS ORDERED: LIDOCAINE-MPF 1%, 2ML ENDO ONE (02:30)
[2017-06-14] MEDS: RANITIDINE 50 MG in SODIUM CHLORIDE 0.9% 100 ML IV SCH ×4 (03:14→20:56)
[2017-06-14] MEDS: INSULIN LISPRO 100 UNITS/ML, PEN SQ-INSULIN SCH ×4 (03:15→20:57)
[2017-06-14] MEDS: ACETAMINOPHEN 650 MG/20.3 ML UDC PO PRN (04:14)
[2017-06-14] MEDS ORDERED: LIDOCAINE 1%, 2ML ENDO PRN (05:00)
[2017-06-14] MEDS: HEPARIN 25,000 UNITS/500ML PMX 500 ML IV PRN ×2 (05:09→20:40)
[2017-06-14 05:15] LABS: CHLORIDE 97 mmol/L (98-107)
[2017-06-14 05:22] LABS: ANION GAP 10 mmol/L (5-15); CALCIUM 7.5 mg/dL (8.5-10.1); CREATININE 0.77 mg/dL (0.55-1.02)
[2017-06-14 05:43] LABS: MEAN CORPUSCULAR HEMOGLOBIN 28.8 pg (27.0-34.8); MEAN CORPUSCULAR HGB CONC 33.1 g/dL (32.4-35.8); MEAN CORPUSCULAR VOLUME 87.2 fL (80-100); MEAN PLATELET VOLUME 10.8 fL (7.4-10.4); PLATELET COUNT 260 x10^3/uL (130-400); RED CELL DISTRIBUTION WIDTH 15.9 % (9.6-15.2)
[2017-06-14 05:44] LABS: MD YES
[2017-06-14 05:46] LABS: BANDS%(MANUAL) 1 % (0-7); EOS% (MANUAL) 3 % (1-7); LYMPH#(MANUAL) 1.19 x10^3/uL (1-3.4); LYMPHS% (MANUAL) 12 % (22-44); MONOS% (MANUAL) 3 % (2-9); NRBC % (MANUAL) 6 % (0-1); SEG#(MANUAL) 8.02 x10^3/uL (1.8-6.8); SEGS% (MANUAL) 81 % (42-75)
[2017-06-14 05:47] LABS: ANISOCYTOSIS 1+; OVALOCYTES 1+; POLYCHROMASIA 1+
[2017-06-14 05:48] LABS: <PLATELET ESTIMATE> ADEQUATE; GIANT PLATELETS 1+; LARGE PLATELETS 1+; TOXIC GRAN 1+
[2017-06-14] MEDS: INSULIN GLARGINE 100 UNITS/ML, PEN SQ-INSULIN SCH ×2 (07:56→20:57)
[2017-06-14] MEDS: FUROSEMIDE 20 MG/2 ML IV SCH (07:56)
[2017-06-14] MEDS: LACTOBACILLUS CHEW TABLET NG SCH ×3 (07:56→20:56)
[2017-06-14] MEDS: AMIODARONE 200 MG TABLET PO SCH ×2 (10:50→20:56)
[2017-06-15] MEDS: CLINDAMYCIN PMX 600MG/50ML 50 ML IV SCH (00:46)
[2017-06-15] MEDS: ALBUTEROL SULFATE 2.5 MG/3 ML NPPB SCH ×6 (02:50→22:20)
[2017-06-15] MEDS: RANITIDINE 50 MG in SODIUM CHLORIDE 0.9% 100 ML IV SCH ×4 (03:10→21:00)
[2017-06-15] MEDS: INSULIN LISPRO 100 UNITS/ML, PEN SQ-INSULIN SCH ×4 (03:10→21:01)
[2017-06-15 04:33] LABS: ANION GAP 8 mmol/L (5-15); CALCIUM 7.4 mg/dL (8.5-10.1); CHLORIDE 98 mmol/L (98-107); CREATININE 0.65 mg/dL (0.55-1.02); TRIGLYCERIDES 90 mg/dL (50-200)
[2017-06-15 06:05] LABS: MEAN CORPUSCULAR HEMOGLOBIN 28.8 pg (27.0-34.8); MEAN CORPUSCULAR HGB CONC 32.8 g/dL (32.4-35.8); MEAN CORPUSCULAR VOLUME 87.6 fL (80-100); MEAN PLATELET VOLUME 10.7 fL (7.4-10.4); PLATELET COUNT 311 x10^3/uL (130-400); RED BLOOD COUNT 2.54 x10^6/uL (3.82-5.3); RED CELL DISTRIBUTION WIDTH 16.2 % (9.6-15.2)
[2017-06-15 06:25] LABS: BASOPHILS # (AUTO) 0.02 x10^3/uL (0-0.1); BASOPHILS % (AUTO) 0 % (0-1); EOSINOPHILS # (AUTO) 0.21 x10^3/uL (0-0.4); EOSINOPHILS % (AUTO) 2 % (1-7); LYMPHOCYTES # (AUTO) 1.82 x10^3/uL (1-3.4); LYMPHOCYTES % (AUTO) 14 % (22-44); MD SCAN; MONOCYTES # (AUTO) 0.62 x10^3/uL (0.2-0.8); MONOCYTES % (AUTO) 5 % (2-9); NEUTROPHILS # (AUTO) 10.69 x10^3/uL (1.8-6.8); NEUTROPHILS % (AUTO) 80 % (42-75)
[2017-06-15] MEDS ORDERED: PHARMACOKINETIC MONITORING MC PRN (07:30)
[2017-06-15] MEDS ORDERED: PHARMACOKINETIC CONSULTATION MC ONE (07:30)
[2017-06-15] MEDS ORDERED: VANCOMYCIN PER PHARMACY MC PRN (07:30)
[2017-06-15] MEDS: MEROPENEM 1 GM in SODIUM CHLORIDE 0.9% 100 ML IV SCH ×3 (07:58→23:22)
[2017-06-15] MEDS: VANCOMYCIN 1,800 MG in SODIUM CHLORIDE 0.9% 250 ML IV SCH (08:34)
[2017-06-15 08:35] LABS: CLOSTRIDIUM DIFFICILE ANTIGEN NEGATIVE; CLOSTRIDIUM DIFFICILE TOXIN NEGATIVE (Negative)
[2017-06-15] MEDS: FUROSEMIDE 20 MG/2 ML IV SCH ×2 (08:47→20:59)
[2017-06-15] MEDS: AMIODARONE 200 MG TABLET PO SCH (08:48)
[2017-06-15] MEDS: LACTOBACILLUS CHEW TABLET NG SCH ×3 (08:48→21:00)
[2017-06-15] MEDS: INSULIN GLARGINE 100 UNITS/ML, PEN SQ-INSULIN SCH ×2 (08:49→21:01)
[2017-06-15 09:55] LABS: MICROSCOPIC INDICATED
[2017-06-15 10:07] LABS: CULTURE INDICATED? NO
[2017-06-15] MEDS: HEPARIN 25,000 UNITS/500ML PMX 500 ML IV PRN (12:25)
[2017-06-16] MEDS: RANITIDINE 50 MG in SODIUM CHLORIDE 0.9% 100 ML IV SCH (03:00)
[2017-06-16] MEDS: INSULIN LISPRO 100 UNITS/ML, PEN SQ-INSULIN SCH ×4 (03:00→21:25)
[2017-06-16] MEDS: HEPARIN 25,000 UNITS/500ML PMX 500 ML IV PRN (03:05)
[2017-06-16] MEDS: ALBUTEROL SULFATE 2.5 MG/3 ML NPPB SCH ×5 (03:09→22:40)
[2017-06-16 04:41] LABS: MEAN CORPUSCULAR HEMOGLOBIN 27.7 pg (27.0-34.8); MEAN CORPUSCULAR HGB CONC 31.9 g/dL (32.4-35.8); MEAN CORPUSCULAR VOLUME 86.8 fL (80-100); MEAN PLATELET VOLUME 10.4 fL (7.4-10.4); PLATELET COUNT 342 x10^3/uL (130-400); RED BLOOD COUNT 2.57 x10^6/uL (3.82-5.3)
[2017-06-16 04:52] LABS: ANION GAP 6 mmol/L (5-15); CALCIUM 7.4 mg/dL (8.5-10.1); CHLORIDE 96 mmol/L (98-107)
[2017-06-16 04:54] LABS: CREATININE 0.62 mg/dL (0.55-1.02)
[2017-06-16 05:34] LABS: MD YES
[2017-06-16 05:36] LABS: ANISOCYTOSIS 1+; BAND#(MANUAL) 0.75 x10^3/uL; BANDS%(MANUAL) 4 % (0-7); EOS#(MANUAL) 0.38 x10^3/uL (0.0-0.4); EOS% (MANUAL) 2 % (1-7); LYMPH#(MANUAL) 2.44 x10^3/uL (1-3.4); LYMPHS% (MANUAL) 13 % (22-44); MONOS#(MANUAL) 0.75 x10^3/uL (0.3-2.7); MONOS% (MANUAL) 4 % (2-9); MYELOCYTES# (MANUAL) 0.19 x10^3/uL (0-0); MYELOCYTES% (MANUAL) 1 % (0-0); SEG#(MANUAL) 14.29 x10^3/uL (1.8-6.8); SEGS% (MANUAL) 76 % (42-75)
[2017-06-16 05:37] LABS: NRBC % (MANUAL) 1 % (0-1); OVALOCYTES 1+; POLYCHROMASIA 1+
[2017-06-16 05:38] LABS: <PLATELET ESTIMATE> ADEQUATE
[2017-06-16 05:41] LABS: GIANT PLATELETS 1+; LARGE PLATELETS 1+; SPHEROCYTES 1+; TOXIC GRAN 1+
[2017-06-16] MEDS: MEROPENEM 1 GM in SODIUM CHLORIDE 0.9% 100 ML IV SCH ×3 (08:00→23:48)
[2017-06-16] MEDS: POTASSIUM CHLORIDE 10% ORAL 20 MEQ/15 ML ORAL.SOL NG SCH ×2 (09:00→21:14)
[2017-06-16] MEDS ORDERED: FUROSEMIDE 100 MG in SODIUM CHLORIDE 0.9% 90 ML IV SCH (09:00)
[2017-06-16] MEDS: LACTOBACILLUS CHEW TABLET NG SCH ×3 (09:42→21:13)
[2017-06-16] MEDS: AMIODARONE 200 MG TABLET PO SCH (09:42)
[2017-06-16] MEDS: PANTOPRAZOLE 40 MG IV IVPush SCH (09:42)
[2017-06-16] MEDS: INSULIN GLARGINE 100 UNITS/ML, PEN SQ-INSULIN SCH ×2 (10:04→21:25)
[2017-06-16] MEDS: ENOXAPARIN 100 MG/ML SQ SCH ×2 (10:53→21:24)
[2017-06-16] MEDS: FUROSEMIDE 100 MG in SODIUM CHLORIDE 0.9% 90 ML IV SCH ×2 (14:20→21:16)
[2017-06-16] MEDS: VANCOMYCIN 1,800 MG in SODIUM CHLORIDE 0.9% 250 ML IV SCH (21:13)
[2017-06-17] MEDS: INSULIN LISPRO 100 UNITS/ML, PEN SQ-INSULIN SCH ×4 (02:53→22:13)
[2017-06-17] MEDS: ALBUTEROL SULFATE 2.5 MG/3 ML NPPB SCH ×6 (03:08→22:50)
[2017-06-17 04:21] LABS: MEAN CORPUSCULAR HEMOGLOBIN 27.8 pg (27.0-34.8); MEAN CORPUSCULAR VOLUME 86.9 fL (80-100); RED BLOOD COUNT 2.58 x10^6/uL (3.82-5.3); RED CELL DISTRIBUTION WIDTH 16.2 % (9.6-15.2)
[2017-06-17 04:29] LABS: ANION GAP 8 mmol/L (5-15); CALCIUM 7.4 mg/dL (8.5-10.1); CHLORIDE 95 mmol/L (98-107); CREATININE 0.64 mg/dL (0.55-1.02)
[2017-06-17 04:57] LABS: MD YES; MEAN PLATELET VOLUME 9.9 fL (7.4-10.4); PLATELET COUNT 394 x10^3/uL (130-400)
[2017-06-17 04:59] LABS: ANISOCYTOSIS 1+; BAND#(MANUAL) 1.02 x10^3/uL; BANDS%(MANUAL) 5 % (0-7); EOS% (MANUAL) 1 % (1-7); LYMPH#(MANUAL) 2.64 x10^3/uL (1-3.4); LYMPHS% (MANUAL) 13 % (22-44); MICROCYTOSIS 1+; POLYCHROMASIA 1+; SEG#(MANUAL) 16.44 x10^3/uL (1.8-6.8); SEGS% (MANUAL) 81 % (42-75)
[2017-06-17 05:00] LABS: <PLATELET ESTIMATE> ADEQUATE; GIANT PLATELETS 1+; LARGE PLATELETS 1+
[2017-06-17] MEDS: FUROSEMIDE 100 MG in SODIUM CHLORIDE 0.9% 90 ML IV SCH ×2 (06:07→15:14)
[2017-06-17] MEDS: MEROPENEM 1 GM in SODIUM CHLORIDE 0.9% 100 ML IV SCH (07:29)
[2017-06-17] MEDS ORDERED: MEROPENEM 1 GM in SODIUM CHLORIDE 0.9% 50 ML IV SCH (09:00)
[2017-06-17] MEDS: LACTOBACILLUS CHEW TABLET NG SCH ×3 (09:27→22:14)
[2017-06-17] MEDS: ENOXAPARIN 100 MG/ML SQ SCH ×2 (09:28→22:14)
[2017-06-17] MEDS: AMIODARONE 200 MG TABLET PO SCH (09:29)
[2017-06-17] MEDS: PANTOPRAZOLE 40 MG IV IVPush SCH (09:29)
[2017-06-17] MEDS: METOLAZONE 5 MG TABLET PO SCH ×2 (09:29→22:14)
[2017-06-17] MEDS: POTASSIUM CHLORIDE 10% 20 MEQ/15 ML UDC NG SCH ×2 (09:29→22:14)
[2017-06-17] MEDS: INSULIN GLARGINE 100 UNITS/ML, PEN SQ-INSULIN SCH ×2 (10:05→22:14)
[2017-06-17] MEDS: MEROPENEM 1 GM in SODIUM CHLORIDE 0.9% 50 ML IV SCH (15:28)
[2017-06-17] MEDS ORDERED: MEROPENEM IV SCH (15:30)
[2017-06-17] MEDS ORDERED: DEXTROSE 5% IV SCH (15:30)
[2017-06-18] MEDS: MEROPENEM 1 GM in SODIUM CHLORIDE 0.9% 50 ML IV SCH ×4 (00:25→22:59)
[2017-06-18] MEDS: FUROSEMIDE 100 MG in SODIUM CHLORIDE 0.9% 90 ML IV SCH (01:43)
[2017-06-18] MEDS: ALBUTEROL SULFATE 2.5 MG/3 ML NPPB SCH ×6 (03:00→22:40)
[2017-06-18] MEDS: INSULIN LISPRO 100 UNITS/ML, PEN SQ-INSULIN SCH ×4 (04:02→20:04)
[2017-06-18 04:43] LABS: ANION GAP 7 mmol/L (5-15); CHLORIDE 87 mmol/L (98-107)
[2017-06-18 04:44] LABS: BASOPHILS # (AUTO) 0.06 x10^3/uL (0-0.1); BASOPHILS % (AUTO) 0 % (0-1); EOSINOPHILS # (AUTO) 0.37 x10^3/uL (0-0.4); EOSINOPHILS % (AUTO) 2 % (1-7); LYMPHOCYTES # (AUTO) 2.42 x10^3/uL (1-3.4); LYMPHOCYTES % (AUTO) 13 % (22-44); MD YES; MEAN CORPUSCULAR HEMOGLOBIN 27.7 pg (27.0-34.8); MEAN CORPUSCULAR VOLUME 86.8 fL (80-100); MEAN PLATELET VOLUME 10.2 fL (7.4-10.4); MONOCYTES # (AUTO) 0.96 x10^3/uL (0.2-0.8); MONOCYTES % (AUTO) 5 % (2-9); NEUTROPHILS % (AUTO) 80 % (42-75); PLATELET COUNT 440 x10^3/uL (130-400); RED BLOOD COUNT 2.54 x10^6/uL (3.82-5.3)
[2017-06-18 04:46] LABS: VANCOMYCIN,RANDOM 7.3 mcg/mL
[2017-06-18 04:48] LABS: ANISOCYTOSIS 1+; BAND#(MANUAL) 0.56 x10^3/uL; BANDS%(MANUAL) 3 % (0-7); BASOS#(MANUAL) 0.19 x10^3/uL (0-0.1); BASOS% (MANUAL) 1 % (0-1); EOS#(MANUAL) 0.56 x10^3/uL (0.0-0.4); EOS% (MANUAL) 3 % (1-7); LYMPHS% (MANUAL) 8 % (22-44); MONOS#(MANUAL) 0.94 x10^3/uL (0.3-2.7); MONOS% (MANUAL) 5 % (2-9); MYELOCYTES# (MANUAL) 0.19 x10^3/uL (0-0); MYELOCYTES% (MANUAL) 1 % (0-0); NRBC % (MANUAL) 2 % (0-1); OVALOCYTES 1+; POLYCHROMASIA 1+; SEG#(MANUAL) 14.85 x10^3/uL (1.8-6.8); SEGS% (MANUAL) 79 % (42-75)
[2017-06-18 04:49] LABS: <PLATELET ESTIMATE> ADEQUATE; GIANT PLATELETS 1+; LARGE PLATELETS 1+
[2017-06-18] MEDS: ACETAMINOPHEN 650 MG/20.3 ML UDC PO PRN ×2 (05:54→20:05)
[2017-06-18] MEDS: POTASSIUM CHLORIDE 10% 20 MEQ/15 ML UDC NG SCH ×2 (07:39→20:04)
[2017-06-18] MEDS: LACTOBACILLUS CHEW TABLET NG SCH ×3 (07:39→20:03)
[2017-06-18] MEDS: PANTOPRAZOLE 40 MG IV IVPush SCH (07:39)
[2017-06-18] MEDS: AMIODARONE 200 MG TABLET PO SCH (07:39)
[2017-06-18] MEDS: METOLAZONE 5 MG TABLET PO SCH ×2 (07:39→20:03)
[2017-06-18] MEDS: INSULIN GLARGINE 100 UNITS/ML, PEN SQ-INSULIN SCH ×2 (07:55→20:05)
[2017-06-18] MEDS ORDERED: SODIUM CHLORIDE 0.9% IV SCH (08:00)
[2017-06-18] MEDS ORDERED: VANCOMYCIN IV SCH (08:00)
[2017-06-18] MEDS: RISPERIDONE 0.5 MG TABLET NG SCH ×2 (09:23→20:04)
[2017-06-18] MEDS: ENOXAPARIN 100 MG/ML SQ SCH ×2 (09:23→22:59)
[2017-06-18] MEDS: AcetaZOLAMIDE INJ 500 MG IVPush SCH ×2 (09:24→20:03)
[2017-06-19] MEDS: ALBUTEROL SULFATE 2.5 MG/3 ML NPPB SCH (03:00)
[2017-06-19] MEDS: INSULIN LISPRO 100 UNITS/ML, PEN SQ-INSULIN SCH ×2 (03:49→08:25)
[2017-06-19 04:42] LABS: ANION GAP 7 mmol/L (5-15); CALCIUM 8.3 mg/dL (8.5-10.1); CHLORIDE 91 mmol/L (98-107); CREATININE 0.71 mg/dL (0.55-1.02)
[2017-06-19 04:46] LABS: MEAN CORPUSCULAR HEMOGLOBIN 27.8 pg (27.0-34.8); MEAN CORPUSCULAR HGB CONC 32.2 g/dL (32.4-35.8); MEAN CORPUSCULAR VOLUME 86.2 fL (80-100); MEAN PLATELET VOLUME 10.5 fL (7.4-10.4); PLATELET COUNT 456 x10^3/uL (130-400); RED BLOOD COUNT 2.34 x10^6/uL (3.82-5.3); RED CELL DISTRIBUTION WIDTH 16.3 % (9.6-15.2)
[2017-06-19 05:52] LABS: MD YES
[2017-06-19 05:53] LABS: ANISOCYTOSIS 1+; BAND#(MANUAL) 0.18 x10^3/uL; BANDS%(MANUAL) 1 % (0-7); EOS#(MANUAL) 0.35 x10^3/uL (0.0-0.4); EOS% (MANUAL) 2 % (1-7); LYMPH#(MANUAL) 1.75 x10^3/uL (1-3.4); LYMPHS% (MANUAL) 10 % (22-44); METAMYELOCYTES# (MANUAL) 0.18 x10^3/uL (0-0); METAMYELOCYTES% (MANUAL) 1 % (0-1); MONOS#(MANUAL) 0.53 x10^3/uL (0.3-2.7); MONOS% (MANUAL) 3 % (2-9); NRBC % (MANUAL) 2 % (0-1); SEG#(MANUAL) 14.53 x10^3/uL (1.8-6.8); SEGS% (MANUAL) 83 % (42-75)
[2017-06-19 05:54] LABS: <PLATELET ESTIMATE> INCREASED; GIANT PLATELETS 1+; LARGE PLATELETS 1+; OVALOCYTES 1+; POLYCHROMASIA 1+
[2017-06-19 05:55] LABS: MICROCYTOSIS 1+; STOMATOCYTES 1+; TOXIC GRAN 1+
[2017-06-19 06:00] LABS: SPHEROCYTES 1+
[2017-06-19] MEDS ORDERED: VANCOMYCIN IV SCH (08:00)
[2017-06-19] MEDS ORDERED: SODIUM CHLORIDE 0.9% IV SCH (08:00)
[2017-06-19] MEDS: METOLAZONE 5 MG TABLET PO SCH (08:18)
[2017-06-19] MEDS: ENOXAPARIN 100 MG/ML SQ SCH (08:18)
[2017-06-19] MEDS: MEROPENEM 1 GM in SODIUM CHLORIDE 0.9% 50 ML IV SCH (08:18)
[2017-06-19] MEDS: LACTOBACILLUS CHEW TABLET NG SCH (08:18)
[2017-06-19] MEDS: PANTOPRAZOLE 40 MG IV IVPush SCH (08:18)
[2017-06-19] MEDS: AMIODARONE 200 MG TABLET PO SCH (08:19)
[2017-06-19] MEDS: POTASSIUM CHLORIDE 10% 20 MEQ/15 ML UDC NG SCH (08:19)
[2017-06-19] MEDS: RISPERIDONE 0.5 MG TABLET NG SCH (08:19)
[2017-06-19] MEDS: AcetaZOLAMIDE INJ 500 MG IVPush SCH (08:19)
[2017-06-19] MEDS: INSULIN GLARGINE 100 UNITS/ML, PEN SQ-INSULIN SCH (08:28)
[2017-06-19] MEDS ORDERED: MORPHINE SULFATE 4 MG/ML, 1ML ONE (09:04)
[2017-06-19] MEDS: MORPHINE SULFATE 4 MG/ML, 1ML IVPush PRN ×2 (09:15→12:57)
[2017-06-19] MEDS ORDERED: LORazepam 2 MG/ML, 1ML IV PRN (13:30)
[2017-06-19] MEDS ORDERED: morphine SULFATE 10 MG/ML, 1ML IV ONE (13:30)
[2017-06-19] MEDS ORDERED: ATROPINE OPHTH SOLN 1%, 2ML PO PRN (14:00)
[2017-06-19] MEDS ORDERED: LORazepam 2 MG/ML, 1ML IV ONE (14:00)
[2017-06-19] MEDS: MORPHINE 30MG/30ML PCA.SYR IV PRN ×3 (15:01→20:22)
== END 2017-06-19 22:30 | disposition expired | DRG 853 ==
LOC: ED 17:37 → EDIP 17:38 → ED 17:50 → CCU 19:59 → 3NW 06-19 17:55
PROVIDERS: ADMIT Hospitalist; ATTEND Hospitalist
PROC: 0BH17EZ Insertion of Endotracheal Airway into Trachea, Via Natural or Artificial Opening (ICD-10-PCS; principal; 2017-06-02)
PROC: 5A1955Z Respiratory Ventilation, Greater than 96 Consecutive Hours (ICD-10-PCS; 2017-06-02)
PROC: 6A550Z3 Pheresis of Plasma, Single (ICD-10-PCS; 2017-06-02)
PROC: 30233L1 Transfusion of Nonautologous Fresh Plasma into Peripheral Vein, Percutaneous Approach (ICD-10-PCS; 2017-06-02)
PROC: 30233K1 Transfusion of Nonautologous Frozen Plasma into Peripheral Vein, Percutaneous Approach (ICD-10-PCS; 2017-06-02)
PROC: 0BB78ZX Excision of Left Main Bronchus, Via Natural or Artificial Opening Endoscopic, Diagnostic (ICD-10-PCS; 2017-06-06)
PROC: 0BJ08ZZ Inspection of Tracheobronchial Tree, Via Natural or Artificial Opening Endoscopic (ICD-10-PCS; 2017-06-06)
PROC: 0BBG8ZX Excision of Left Upper Lung Lobe, Via Natural or Artificial Opening Endoscopic, Diagnostic (ICD-10-PCS; 2017-06-12)
PROC: 0BBC8ZX Excision of Right Upper Lung Lobe, Via Natural or Artificial Opening Endoscopic, Diagnostic (ICD-10-PCS; 2017-06-12)
PROC: 0DJD8ZZ Inspection of Lower Intestinal Tract, Via Natural or Artificial Opening Endoscopic (ICD-10-PCS; 2017-06-12)
DX: A41.9 Sepsis, unspecified organism (principal); J96.01 Acute respiratory failure with hypoxia; I26.99 Other pulmonary embolism without acute cor pulmonale; N17.0 Acute kidney failure with tubular necrosis; Z99.11 Dependence on respirator [ventilator] status; I50.33 Acute on chronic diastolic (congestive) heart failure; D68.59 Other primary thrombophilia; J18.9 Pneumonia, unspecified organism; I08.1 Rheumatic disorders of both mitral and tricuspid valves; K92.1 Melena; Z99.81 Dependence on supplemental oxygen; R65.20 Severe sepsis without septic shock; I48.91 Unspecified atrial fibrillation; E11.9 Type 2 diabetes mellitus without complications; I11.0 Hypertensive heart disease with heart failure; E03.9 Hypothyroidism, unspecified; F41.9 Anxiety disorder, unspecified; Z53.8 Procedure and treatment not carried out for other reasons; Z51.5 Encounter for palliative care; Z79.01 Long term (current) use of anticoagulants; Z79.82 Long term (current) use of aspirin; Z80.1 Family history of malignant neoplasm of trachea, bronchus and lung; Z86.73 Personal history of transient ischemic attack (TIA), and cerebral infarction without residual deficits; Z88.0 Allergy status to penicillin
CPT/HCPCS: 31500; 31622; 31623; 31624; 31625; 31628; 36415; 36430; 36600; 70553; 71045; 71275; 74177; 74230; 80048; 80053; 80202; 81001; 82533; 82803; 82962; 83605; 83735; 84100; 84132; 84145; 84443; 84478; 84484; 85014; 85018; 85025; 85520; 85610; 85730; 86850; 86900; 87040; 87070; 87081; 87205; 87324; 87400; 88104; 88112; 88305; 88341; 88342; 93005; 93306; 93970; 94002; 94003; 94150; 94640; 94667; 94668; 96365; 96366; 96367; 96368; 99152; 99153; 99292; J0456; J0696; J1644; J1650; J1940; J2185; J2250; J2704; J2780; J3010; J3370; J3490; J7060; J7608; J7613; Q9967; C9113; G0461; J0282; J1120; J1160; J1815; J2060; J2270; J7050; P9017; S0028